=== PATIENT | male | born 1990 | race Caucasian/White ===

== ENCOUNTER 2023-07-30 03:46 | Emergency (ER) | payer MEDICAID ==
[2023-07-30 04:19] LABS: BASOPHILS ABSOLUTE AUTO 0.04 K/uL (0.00-0.10); BASOPHILS PERCENT AUTO 0.4 % (0.1-1.3); EOSINOPHILS ABSOLUTE AUTO 0.29 K/uL (0.00-0.40); EOSINOPHILS PERCENT AUTO 3.2 % (0.0-5.4); HEMATOCRIT 46.5 % (38.4-49.7); HEMOGLOBIN 15.8 g/dL (12.9-16.9); IMMATURE GRAN ABSOLUTE AUTO 0.02 K/uL (0.00-0.23); IMMATURE GRAN PERCENT AUTO 0.2 % (0.0-0.7); LYMPHOCYTES ABSOLUTE AUTO 1.88 K/uL (0.8-3.3); LYMPHOCYTES PERCENT AUTO 20.9 % (11.4-47.7); MEAN CORPUSCULAR HEMOGLOBIN 30.3 pg (31.6-35.5); MEAN CORPUSCULAR VOLUME 89.1 fL (81.4-99.0); MONOCYTES ABSOLUTE AUTO 0.65 K/uL (0.20-0.90); MONOCYTES PERCENT AUTO 7.2 % (3.3-12.6); NEUTROPHILS PERCENT AUTO 68.1 % (40.0-78.1); PLATELET COUNT,PLT 253 K/uL (130-375); RED BLOOD CELL COUNT 5.22 M/uL (4.14-5.76)
[2023-07-30 04:42] LABS: CALCIUM 8.5 mg/dL (8.5-10.1); CREATININE 0.9 mg/dL (0.8-1.3); EST CRCL DRUG DOSING (CG) 120.02 mL/min; POTASSIUM,K 4.1 mmol/L (3.6-5.2); TROPONIN I HIGH SENSITIVITY 4.4 pg/mL (<=60.3)
[2023-07-30 04:44] LABS: ANION GAP 11.1 mmol/L (5.0-14.0)
[2023-07-30] MEDS ORDERED: Alum Hydrox/Mag Hydrox/Simeth 15 ML, Lidocaine 2% 15 ML PO ONE ×2 (05:02)
[2023-07-30] MEDS ORDERED: Colchicine 0.6 MG Tab PO ONE (06:01)
[2023-07-30] MEDS ORDERED: Ibuprofen 600 MG Tab PO ONE (06:03)
[2023-07-30] MEDS ORDERED: Ondansetron 4 MG/2 ML SDV IVPUSH ONE (06:36)
== END 2023-07-30 09:16 | disposition home or self-care (01) ==
LOC: JP.ED 03:46
DX: I30.9 Acute pericarditis, unspecified (principal); J45.909 Unspecified asthma, uncomplicated; Z86.16 Personal history of COVID-19; Z79.899 Other long term (current) drug therapy
CPT/HCPCS: 36415; 71046; 71046-26; 80048; 84484; 85025; 85379; 85651; 86140; 93010; 93306; 96374; 99283; 99285-25; A9270-GY; J2405

== ENCOUNTER 2024-03-30 15:37 | Emergency (ER) | payer OTHER, MEDICAID | END 2024-03-30 17:10 | disposition home or self-care (01) | LOC: JP.ED 15:37 | DX: S16.1XXA Strain of muscle, fascia and tendon at neck level, initial encounter (principal); J45.909 Unspecified asthma, uncomplicated; Z79.51 Long term (current) use of inhaled steroids; Z79.899 Other long term (current) drug therapy; Z86.16 Personal history of COVID-19; V49.49XA Driver injured in collision with other motor vehicles in traffic accident, initial encounter; Y93.89 Activity, other specified | CPT/HCPCS: 99283 ==